=== PATIENT | female | born 1970 | race American Indian/Alaskan Native ===

== ENCOUNTER 2018-12-17 12:00 | Outpatient (CLI) | payer MEDICAID ==
[2018-12-17 12:36] LABS: Hematocrit 36.3 % (30.3-42.9); Mean Corpuscular HGB Conc 33 % (30-34); Mean Corpuscular Volume 86 fl (79-97); Platelet Count 282 K/mm3 (140-440); Red Blood Count 4.24 M/mm3 (3.65-5.03); Red Cell Distribution Width 13.4 % (13.2-15.2)
[2018-12-17 12:50] LABS: Creatinine,Urine 251.9 mg/dL (0.1-20.0); Protein/Creatinine Ratio,Urine 0.06
[2018-12-17 13:01] LABS: Albumin 3.7 g/dL (3.9-5); Calcium 9.5 mg/dL (8.4-10.2)
== END 2018-12-17 12:01 | disposition home or self-care (01) ==
LOC: LAB 12:00
PROVIDERS: ATTEND Internal Medicine
DX: I12.9 Hypertensive chronic kidney disease with stage 1 through stage 4 chronic kidney disease, or unspecified chronic kidney disease (principal); N18.3 Chronic kidney disease, stage 3 (moderate)
CPT/HCPCS: 36415; 80048; 82040; 82570; 84100; 84156; 85027

== ENCOUNTER 2019-06-16 13:40 | Outpatient (CLI) | payer MEDICAID ==
[2019-06-16 14:26] LABS: Hematocrit 36.8 % (30.3-42.9); Hemoglobin 12.5 gm/dl (10.1-14.3); Mean Corpuscular HGB Conc 34 % (30-34); Mean Corpuscular Volume 84 fl (79-97); Platelet Count 297 K/mm3 (140-440); Red Blood Count 4.37 M/mm3 (3.65-5.03); Red Cell Distribution Width 13.8 % (13.2-15.2)
[2019-06-16 14:31] LABS: Albumin 3.9 g/dL (3.9-5); Calcium 9.7 mg/dL (8.4-10.2)
[2019-06-16 14:40] LABS: Creatinine,Urine 135.4 mg/dL (0.1-20.0); Protein/Creatinine Ratio,Urine 0.05
[2019-06-21 14:25] LABS: Vitamin D, 25-OH, D2 <4 ng/mL
== END 2019-06-16 13:41 | disposition home or self-care (01) ==
LOC: LAB 13:40
PROVIDERS: ATTEND Internal Medicine
DX: I12.9 Hypertensive chronic kidney disease with stage 1 through stage 4 chronic kidney disease, or unspecified chronic kidney disease (principal); N18.3 Chronic kidney disease, stage 3 (moderate); E87.6 Hypokalemia; R80.9 Proteinuria, unspecified; R73.01 Impaired fasting glucose; E26.9 Hyperaldosteronism, unspecified
CPT/HCPCS: 36415; 80048; 82040; 82306; 82570; 84100; 84156; 85027

== ENCOUNTER 2019-09-29 09:46 | Outpatient (CLI) | payer MEDICAID ==
[2019-09-29 10:11] LABS: Hematocrit 37.1 % (30.3-42.9); Hemoglobin 12.2 gm/dl (10.1-14.3); Mean Corpuscular HGB Conc 33 % (30-34); Mean Corpuscular Volume 85 fl (79-97); Platelet Count 249 K/mm3 (140-440); Red Blood Count 4.35 M/mm3 (3.65-5.03); Red Cell Distribution Width 13.2 % (13.2-15.2)
[2019-09-29 10:38] LABS: Calcium 9.7 mg/dL (8.4-10.2)
[2019-09-29 11:57] LABS: Creatinine,Urine 144.7 mg/dL (0.1-20.0); Protein/Creatinine Ratio,Urine 0.13
[2019-10-02 16:10] LABS: Vitamin D, 25-OH, D2 32 ng/mL
== END 2019-09-29 09:47 | disposition home or self-care (01) ==
LOC: LAB 09:46
PROVIDERS: ATTEND Internal Medicine
DX: I12.9 Hypertensive chronic kidney disease with stage 1 through stage 4 chronic kidney disease, or unspecified chronic kidney disease (principal); N18.9 Chronic kidney disease, unspecified; R80.9 Proteinuria, unspecified; D64.9 Anemia, unspecified; I45.6 Pre-excitation syndrome; K21.9 Gastro-esophageal reflux disease without esophagitis
CPT/HCPCS: 36415; 80048; 82040; 82306; 82570; 84100; 84156; 85027

== ENCOUNTER 2020-01-09 16:19 | Outpatient (CLI) | payer MEDICAID ==
[2020-01-09 16:45] LABS: Basophils % (Auto) 0.8 % (0.0-1.8); Eosinophils % (Auto) 0.7 % (0.0-4.3); Hematocrit 39.9 % (30.3-42.9); Lymphocytes # (Auto) 1.5 K/mm3 (1.2-5.4); Lymphocytes % (Auto) 24.9 % (13.4-35.0); Mean Corpuscular HGB Conc 33 % (30-34); Mean Corpuscular Volume 85 fl (79-97); Monocytes # (Auto) 0.6 K/mm3 (0.0-0.8); Monocytes % (Auto) 10.3 % (0.0-7.3); Platelet Count 331 K/mm3 (140-440); Red Blood Count 4.72 M/mm3 (3.65-5.03)
[2020-01-09 17:06] LABS: Albumin 4.1 g/dL (3.9-5); Calcium 9.7 mg/dL (8.4-10.2)
[2020-01-13 12:57] LABS: Vitamin D, 25-OH, D2 32 ng/mL
== END 2020-01-09 16:20 | disposition home or self-care (01) ==
LOC: LAB 16:19
PROVIDERS: ATTEND Internal Medicine
DX: I12.9 Hypertensive chronic kidney disease with stage 1 through stage 4 chronic kidney disease, or unspecified chronic kidney disease (principal); N18.3 Chronic kidney disease, stage 3 (moderate); E87.6 Hypokalemia; R80.9 Proteinuria, unspecified; R73.01 Impaired fasting glucose; E26.9 Hyperaldosteronism, unspecified; E55.9 Vitamin D deficiency, unspecified
CPT/HCPCS: 36415; 80048; 82040; 82306; 84100; 85025

== ENCOUNTER 2020-03-01 10:15 | Outpatient (CLI) | payer MEDICAID ==
[2020-03-01 10:48] LABS: Hematocrit 39.3 % (30.3-42.9); Hemoglobin 12.9 gm/dl (10.1-14.3); Mean Corpuscular HGB Conc 33 % (30-34); Mean Corpuscular Volume 85 fl (79-97); Platelet Count 256 K/mm3 (140-440); Red Cell Distribution Width 14.8 % (13.2-15.2)
[2020-03-01 11:02] LABS: Albumin 3.9 g/dL (3.9-5); Calcium 9.7 mg/dL (8.4-10.2)
[2020-03-01 14:02] LABS: Creatinine,Urine 109.1 mg/dL (0.1-20.0); Protein/Creatinine Ratio,Urine 0.05
== END 2020-03-01 10:16 | disposition home or self-care (01) ==
LOC: LAB 10:15
PROVIDERS: ATTEND Internal Medicine
DX: I12.9 Hypertensive chronic kidney disease with stage 1 through stage 4 chronic kidney disease, or unspecified chronic kidney disease (principal); N18.3 Chronic kidney disease, stage 3 (moderate); E87.6 Hypokalemia; R80.9 Proteinuria, unspecified; R73.01 Impaired fasting glucose; E26.9 Hyperaldosteronism, unspecified; E55.9 Vitamin D deficiency, unspecified
CPT/HCPCS: 36415; 80048; 82040; 82570; 84100; 84156; 85027

== ENCOUNTER 2020-06-08 16:09 | Outpatient (CLI) | payer MEDICAID ==
[2020-06-08 16:45] LABS: Basophils # (Auto) 0.1 K/mm3 (0.0-0.1); Eosinophils # (Auto) 0.1 K/mm3 (0.0-0.4); Eosinophils % (Auto) 1.3 % (0.0-4.3); Hematocrit 39.3 % (30.3-42.9); Hemoglobin 12.9 gm/dl (10.1-14.3); Lymphocytes # (Auto) 1.4 K/mm3 (1.2-5.4); Lymphocytes % (Auto) 23.4 % (13.4-35.0); Mean Corpuscular HGB Conc 33 % (30-34); Mean Corpuscular Volume 88 fl (79-97); Monocytes # (Auto) 0.5 K/mm3 (0.0-0.8); Monocytes % (Auto) 9.3 % (0.0-7.3); Platelet Count 294 K/mm3 (140-440); Red Blood Count 4.47 M/mm3 (3.65-5.03); Red Cell Distribution Width 13.7 % (13.2-15.2)
[2020-06-08 16:58] LABS: Albumin 4.1 g/dL (3.9-5); Calcium 9.9 mg/dL (8.4-10.2)
[2020-06-08 17:10] LABS: Creatinine,Urine 319.7 mg/dL (0.1-20.0); Protein/Creatinine Ratio,Urine 0.05
== END 2020-06-08 16:10 | disposition home or self-care (01) ==
LOC: LAB 16:09
PROVIDERS: ATTEND Internal Medicine
DX: I12.9 Hypertensive chronic kidney disease with stage 1 through stage 4 chronic kidney disease, or unspecified chronic kidney disease (principal); N18.3 Chronic kidney disease, stage 3 (moderate); R80.9 Proteinuria, unspecified; E87.6 Hypokalemia; R73.01 Impaired fasting glucose; E26.9 Hyperaldosteronism, unspecified; E55.9 Vitamin D deficiency, unspecified
CPT/HCPCS: 36415; 80048; 82040; 82306; 82570; 84100; 84156; 85025